=== PATIENT | male | born 1945 | race Caucasian/White ===

== ENCOUNTER → 2016-07-04 | Outpatient (CLI) | payer OTHER ==
[2010-10-20 15:11] VITALS: BP 104/75
[2016-07-04 16:00] LABS: BASOPHILS # (AUTO) 0.02 10*3/UL; BASOPHILS % (AUTO) 0.3 % (0-1); EOSINOPHILS % (AUTO) 3.5 % (0-8); HEMATOCRIT 45.7 % (42.0-52.0); HEMOGLOBIN 15.6 g/dL (14.0-18.0); IMM GRAN % (AUTO) 0.4 % (0-5); IMM GRAN# (AUTO) 0.03 10*3/UL; LYMPHOCYTES # (AUTO) 1.65 10*3/uL; LYMPHOCYTES % (AUTO) 23.9 % (10-50); MEAN CORPUSCULAR HEMOGLOBIN 31.8 PG (27-31); MEAN CORPUSCULAR HGB CONC 34.1 g/dL (33-37); MEAN PLATELET VOLUME 10.6 FL (7.4-12.2); MONOCYTES # (AUTO) 0.54 10*3/UL (0.3-0.8); MONOCYTES % (AUTO) 7.8 % (5-15); NEUTROPHILS # (AUTO) 4.41 10*3/UL; NEUTROPHILS % (AUTO) 64.1 % (50-80); RDW COEFFICIENT OF VARIATION 12.3 % (11.5-14.5); RED BLOOD COUNT 4.91 10^6/uL (4.70-6.10); WHITE BLOOD COUNT 6.89 10^3/uL (4.8-10.8)
[2016-07-04 16:08] LABS: PLATELET MORPHOLOGY COMMENT NORMAL MORPHOLOGY (NORM)
[2016-07-04 16:39] LABS: FREE T4 (FREE THYROXINE) 1.04 ng/dL (0.93-1.71)
[2016-07-04 17:39] LABS: ERYTHROCYTE SEDIMENTATION RATE 8 MM/HR (0-15)
--- NOTE | 2016-07-04 22:38 | DI ---
AP PELVIS and RIGHT HIP, 07/04/2016 2:17 PM: Clinical History: Deep right inguinal pain. Previous Exam: None at this facility. There is no soft tissue abnormality. The bony structures of the pelvis are normal. 2 views of the rig ht hip show uniform severe joint space narrowing with sclerosis on both sides of the joint space. The re is a spherical femoral head without proliferation of the lateral margin of the acetabulum. Chronic disc space narrowing is present at L2-3 through at least L4-5. The AP view of the left hip shows chiara rowing of the superior aspect of the joint space. Readin. Severe arthritis of the right hip joint. 2. The AP pelvis view is unremarkable. 3. There is chronic disc space narrowing from at least L2-3 through L4-5.
== END ==
LOC: MOB LAB 14:26
PROVIDERS: ATTEND Internal Medicine
DX: E03.9 Hypothyroidism, unspecified (principal); R10.84 Generalized abdominal pain; R06.09 Other forms of dyspnea; G89.21 Chronic pain due to trauma; M25.551 Pain in right hip; M16.11 Unilateral primary osteoarthritis, right hip; R33.9 Retention of urine, unspecified; Z12.5 Encounter for screening for malignant neoplasm of prostate
CPT/HCPCS: 36415; 73502; 84439; 84443; 85025; 85652; G0103

== ENCOUNTER → 2016-07-06 | Outpatient (CLI) | payer OTHER ==
[2010-10-20 15:11] VITALS: BP 104/75
--- NOTE | 2016-07-06 14:53 | DI ---
RIGHT KNEE, 07/06/2016 9:42 AM: Clinical History: Right knee pain. Previous Exam: 08/09/2011. 3 views are submitted. The AP projection is a weightbearing view. The patient is status post total kn ee replacement and the prosthetic device articulates normally. On the AP projection, there is a lucen cy along the inferior margin of the tibial plate on the lateral side. There is also a subtle lucency along the stem of the tibial prosthesis that extends into the proximal tibia. Loosening of the tibial plate cannot be excluded. The femoral component appears intact. Reading: Status post total right knee replacement. There is a lucent band that extends along the inferior lan in of the lateral aspect of the tibial plate seen on the AP view, and there is a subtle lucency surro unding the metallic stem that has been inserted into the tibia. Loosening of the tibial component of the prosthesis cannot be excluded.
== END ==
LOC: ORTHO 09:52
PROVIDERS: ATTEND Orthopaedic Surgery
DX: M25.561 Pain in right knee (principal); Z96.651 Presence of right artificial knee joint
CPT/HCPCS: 73562

== ENCOUNTER 2016-07-20 10:37 | Day surgery (SDC) | payer OTHER ==
[~2016-07-20 10:37] MED LIST: BETAMET ACET/BETAMET NA PH 6 MG/1 ML - 5 ML ONE; Iopamidol Inj 61% 50 ML VIAL ONE; LIDOCAINE W/ SODIUM BICARB 0.5 ML SYR ONE; Lidocaine Inj 1% 20 ML ONE; ROPIVACAINE HCL 7.5 MG/1 ML - 20 ML ONE
[2016-07-20 14:24] VITALS: RESP 20
[2016-07-20 14:27] VITALS: TEMP 97.9
== END 2016-07-20 13:02 | disposition home or self-care (01) ==
LOC: SDSC 10:37
PROVIDERS: ATTEND Orthopaedic Surgery
DX: M16.11 Unilateral primary osteoarthritis, right hip (principal)
CPT/HCPCS: 20610; 76000; J0702; J2001

== ENCOUNTER → 2016-08-23 | Outpatient (CLI) | payer OTHER ==
[2010-10-20 15:11] VITALS: BP 104/75
== END ==
LOC: MOB LAB 12:10
PROVIDERS: ATTEND Internal Medicine
DX: E03.9 Hypothyroidism, unspecified (principal)
CPT/HCPCS: 36415; 84439; 84443

== ENCOUNTER → 2016-09-27 | Outpatient (CLI) | payer OTHER ==
[2010-10-20 15:11] VITALS: BP 104/75
== END ==
LOC: MMPC 11:11
PROVIDERS: ATTEND Internal Medicine
DX: G89.21 Chronic pain due to trauma (principal); R06.09 Other forms of dyspnea; R33.9 Retention of urine, unspecified; Z02.89 Encounter for other administrative examinations
CPT/HCPCS: 99213; G0463

== ENCOUNTER → 2016-11-27 | Outpatient (CLI) | payer OTHER ==
[2010-10-20 15:11] VITALS: BP 104/75
== END ==
LOC: MMPC 11:11
PROVIDERS: ATTEND Internal Medicine
DX: G89.21 Chronic pain due to trauma (principal); G62.9 Polyneuropathy, unspecified; K41.90 Unilateral femoral hernia, without obstruction or gangrene, not specified as recurrent; E03.9 Hypothyroidism, unspecified; M16.11 Unilateral primary osteoarthritis, right hip; Z96.651 Presence of right artificial knee joint
CPT/HCPCS: 99213; G0463